=== PATIENT | male | born 1985 | race Caucasian/White ===

== ENCOUNTER → 2018-07-06 16:19 | Emergency (ER) | payer BC ==
[~2018-07-06 16:19] MED LIST: Ketorolac INJ* 30 MG/ML 1 ML VIAL IM ONE; Lidocaine PATCH 5%* 1 PATCH TRANSDERM ONE; Lidocaine Patch REMOVE* 1 NOTE MISC PATCH OFF SCH
--- NOTE | 2018-07-06 18:15 | ED ---
Upper Extremity Pain - HPI Summary HPI Summary: 32-year-old male presents with right-sided shoulder and neck pain. He states he did move some furniture last night. He states he woke up with the pain. Pain is not midline on his neck. He denies any fevers. No stiffness. No weakness. No numbness or tingling. Pain is mostly over his right scapula. He states that the area feels swollen. He took some Tylenol without relief. He has never had this pain before. He denies any injury. He denies any chest pain or shortness of breath. - History of Current Complaint Chief Complaint: EDExtremityUpper Stated Complaint: PAIN IN NECK AND SHOULDER PER PT Time Seen by Provider: 07/06/18 17:08 - Allergies/Home Medications Allergies/Adverse Reactions: Allergies Allergy/AdvReac Type Severity Reaction Status Date / Time No Known Allergies Allergy Verified 07/06/18 16:39 Home Medications: Home Medications Acetaminophen [Tylenol Extra Strength] 500 - 1,000 mg PO Q6HR PRN 07/06/18 [ History Confirmed 07/06/18] PMH/Surg Hx/FS Hx/Imm Hx Endocrine/Hematology History: Denies: Hx Anticoagulant Therapy Respiratory History: Denies: Hx Asthma Infectious Disease History: No Infectious Disease History: Denies: Traveled Outside the [place] in Last 30 Days - Family History Known Family History: Positive: Non-Contributory - Social History Alcohol Use: Rare Substance Use Type: Reports: None Smoking Status (MU): Never Smoked Tobacco Review of Systems Negative: Fever Negative: Chest Pain Negative: Shortness Of Breath Positive: Myalgia - right shoulder and neck pain All Other Systems Reviewed And Are Negative: Yes Physical Exam Triage Information Reviewed: Yes Vital Signs On Initial Exam: Initial Vitals Temp Pulse Resp BP Pulse Ox 99.2 F 83 16 129/78 98 07/06/18 16:36 07/06/18 16:36 07/06/18 16:36 07/06/18 16:36 07/06/18 16:36 Vital Signs Reviewed: Yes Appearance: Positive: Well-Appearing Skin: Positive: Warm, Dry Head/Face: Positive: Normal Head/Face Inspection Eyes: Positive: Normal, Conjunctiva Clear ENT: Positive: Pharynx normal Respiratory/Lung Sounds: Positive: Clear to Auscultation, Breath Sounds Present Cardiovascular: Positive: Normal, RRR Musculoskeletal: Positive: Strength/ROM Intact - right shoulder and neck with pain, Other - good pulses, tenderness over right scapula Neurological: Positive: Normal Psychiatric: Positive: Normal Diagnostics - Vital Signs Vital Signs Temp Pulse Resp BP Pulse Ox 07/06/18 16:36 99.2 F 83 16 129/78 98 - Laboratory Lab Statement: Any lab studies that have been ordered have been reviewed, and results considered in the medical decision making process. - Radiology shoulder Radiology Interpretation Completed By: Radiologist Summary of Radiographic Findings: no fracture neck Radiology Interpretation Completed By: Radiologist Summary of Radiographic Findings: no fracture Re-Evaluation - Re-Evaluation First Eval Re-Evaluation Time: 18:40 Change: Improved Comment: feeling better Course/Dx - Course Course Of Treatment: 32-year-old male presents with right-sided shoulder and neck pain. He states he did move some furniture last night. He states he woke up with the pain. Pain is not midline on his neck. He denies any fevers. No stiffness. No weakness. No numbness or tingling. Pain is mostly over his right scapula. He states that the area feels swollen. He took some Tylenol without relief. He has never had this pain before. He denies any injury. He denies any chest pain or shortness of breath. On exam tenderness over right scapula. Neurovascular intact. Full range of motion with Pain. X-rays normal as read by me. We will treat with muscle relaxer and told to take ibuprofen. Patient understands agrees with plan. - Diagnoses Differential Diagnosis/HQI/PQRI: Positive: Fracture (Closed), Strain, Sprain Provider Diagnoses: Neck pain, Right shoulder pain Discharge - Sign-Out/Discharge Documenting (check all that apply): Patient Departure Patient Received Moderate/Deep Sedation with Procedure: No - Discharge Plan Condition: Good Disposition: HOME Patient Education Materials: Neck Pain (ED) Referrals: [facility] [Outside] Additional Instructions: Take muscle relaxers three times a day Apply lidocaine patches to area for up to 12 hours in one 24 hour period Use ibuprofen or Tylenol for pain every 6 hours ice/heat area, move as much as possible Establish care with primary for follow up Return to ED if develop any new or worsening symptoms - Billing Disposition and Condition Condition: GOOD Disposition: Home
[2018-07-06 19:07] VITALS: BP 126/81
== END | disposition home or self-care (01) ==
LOC: ED 16:19
DX: M25.511 Pain in right shoulder (principal); M54.2 Cervicalgia
CPT/HCPCS: 72050; 96374; 99282; A9270-GY; J1885